=== PATIENT | female | born 1960 | race Caucasian/White ===

== ENCOUNTER 2020-08-14 10:19 | Outpatient (REF) | payer OTHER, SELFPAY ==
--- NOTE | 2020-08-14 10:24 | MM_ITS ---
EXAMINATION: MM SCREENING DIGITAL BREAST TOMOSYNTHESIS, BILATERAL CLINICAL INFORMATION: Screening. Asymptomatic. The lifetime risk of breast cancer based on the Tyrer-Cuzick Model is 9%. COMPARISON: Mammography: 02/23/2019, 01/29/2018, 12/28/2016, 12/10/2015 TECHNIQUE: Digital breast tomosynthesis is performed in both the craniocaudal and mediolateral oblique views along with computer-aided detection (CAD). Synthesized 2D images are generated from the tomosynthesis. FINDINGS: There are scattered areas of fibroglandular density (ACR BI-RADS breast composition Category b). Parenchymal pattern is similar to prior studies. There is no developing density. No interval mass or architectural abnormality or abnormal calcifications. No developing density. The axilla and skin contours are unremarkable. MM/MM tomosynthesis screening BI IMPRESSION: No mammographic evidence of malignancy. ASSESSMENT: BI-RADS 1: Negative RECOMMENDATION: Routine annual mammography screening. This patient's information was entered into a reminder system with a target due date for their next mammogram.
== END 2020-08-14 10:20 | disposition home or self-care (01) ==
LOC: HO.MAMMO 10:19
PROVIDERS: PCP Internal Medicine; Visit Provider Internal Medicine
DX: Z12.31 Encounter for screening mammogram for malignant neoplasm of breast (principal)
CPT/HCPCS: 77063; 77067

== ENCOUNTER 2020-09-14 06:32 | Outpatient (REF) | payer OTHER, SELFPAY | END 2020-09-14 06:33 | disposition home or self-care (01) | LOC: HO.LAB 06:32 | PROVIDERS: Visit Provider Internal Medicine | DX: Z20.828 Contact with and (suspected) exposure to other viral communicable diseases (principal) | CPT/HCPCS: C9803; U0003 ==

== ENCOUNTER 2021-05-20 06:27 | Outpatient (REF) | payer OTHER, SELFPAY ==
[2021-05-20 11:22] LABS: Glucose Urine UA NEG (NEG); Leukocyte Esterase Urine NEG (NEG); Nitrite Urine NEG (NEG); Specific Gravity - Urine <= 1.005 (1.005-1.025); Urine Blood NEG (NEG); Urine Ketones NEG (NEG); Urine Protein NEG (NEG-TRACE)
[2021-05-20 11:24] LABS: Appearance Urine CLEAR; Color Urine YELLOW
[2021-05-20 11:28] LABS: Hematocrit 43.5 % (37-47); Hemoglobin 14.2 g/dl (12.0-16.0); Mean Corpuscular HGB Conc 32.6 g/dl (31.0-35.0); Mean Corpuscular Hemoglobin 31.2 pg (27.0-33.0); Mean Corpuscular Volume 95.6 fL (80-98); Platelet Count 321 X10*3/uL (160-400); Red Blood Count 4.55 X10*6/uL (4.20-5.50); Red Cell Distribution Width 12.7 % (11.0-16.0); White Blood Count 5.1 X10*3/uL (4.8-10.8)
[2021-05-20 11:44] LABS: Alanine Aminotransferase 23 U/L (0-31); Albumin Level 4.7 g/dL (3.5-5.0); Alkaline Phosphatase 80 U/L (39-117); Anion Gap 17 (12-20); Aspartate Amino Transferase 24 U/L (5-31); Bilirubin Total 0.7 mg/dL (0.0-1.0); Blood Urea Nitrogen 10 mg/dL (9-16); Calcium 9.6 mg/dL (8.4-10.2); Carbon Dioxide 25 mmol/L (22-29); Chloride 102 mmol/L (96-108); Cholesterol 195 mg/dL; Estimated Glomerular Filt Rate > 60; Glucose Fasting 111 mg/dL (60-99); HDL Cholesterol 51 mg/dL; LDL Cholesterol Calculated 88 mg/dl; Potassium 4.7 mmol/L (3.3-5.1); Sodium 139 mmol/L (135-145); Total Protein 7.1 g/dL (6.5-8.0); Triglycerides 280 mg/dL
== END 2021-05-20 06:28 | disposition home or self-care (01) ==
LOC: HO.HMGCLDS 06:27
PROVIDERS: PCP Internal Medicine; Visit Provider Internal Medicine
DX: Z00.00 Encounter for general adult medical examination without abnormal findings (principal)
CPT/HCPCS: 36415; 80053; 80061; 81003; 85027

== ENCOUNTER 2021-08-17 07:13 | Outpatient (REF) | payer OTHER, SELFPAY ==
--- NOTE | ~2021-08-17 | MM_ITS ---
EXAMINATION: MM SCREENING DIGITAL BREAST TOMOSYNTHESIS, BILATERAL CLINICAL INFORMATION: Screening. Asymptomatic. The lifetime risk of breast cancer based on the Tyrer-Cuzick Model is 6.3%. COMPARISON: Mammography: August 14, 2020 and studies dating back to August 31, 2012 TECHNIQUE: Digital breast tomosynthesis is performed in both the craniocaudal and mediolateral oblique views along with computer-aided detection (CAD). Synthesized 2D images are generated from the tomosynthesis. FINDINGS: There are scattered areas of fibroglandular density (ACR BI-RADS breast composition Category b). There are no significant masses, abnormal calcifications, or other abnormalities. MM/MM tomosynthesis screening BI IMPRESSION: There are no significant changes from prior study. ASSESSMENT: BI-RADS 1: Negative RECOMMENDATION: Routine annual mammography screening. This patient's information was entered into a reminder system with a target due date for their next mammogram.
== END 2021-08-17 07:14 | disposition home or self-care (01) ==
LOC: HO.MAMMO 07:13
PROVIDERS: Visit Provider Internal Medicine
DX: Z12.31 Encounter for screening mammogram for malignant neoplasm of breast (principal)
CPT/HCPCS: 77063; 77067

== ENCOUNTER 2021-10-15 12:34 | Outpatient (REF) | payer OTHER, SELFPAY ==
[2021-10-15 12:55] LABS: COVID-19 Test Negative (Negative)
== END 2021-10-15 12:35 | disposition home or self-care (01) ==
LOC: HO.LNP 12:34
PROVIDERS: Visit Provider Internal Medicine
DX: R09.89 Other specified symptoms and signs involving the circulatory and respiratory systems (principal); Z20.822 Contact with and (suspected) exposure to COVID-19
CPT/HCPCS: 87635

== ENCOUNTER 2022-04-20 06:04 | Outpatient (REF) | payer OTHER, SELFPAY ==
[2022-04-20 11:30] LABS: MANUAL DIFF FLAG NO
[2022-04-20 11:53] LABS: Basophils Absolute Auto 0.1 X10*3/uL (0.0-0.2); Basophils Percent Auto 1.1 % (0-2); Eosinophils Absolute Auto 0.1 X10*3/uL (0.0-0.4); Hematocrit 41.3 % (37.0-47.0); Hemoglobin 13.4 g/dl (12.0-16.0); Imm Gran Abs Auto 0.01 X10*3/uL (0.00-0.03); Imm Gran Pct Auto 0.2 % (0.0-0.4); Lymphocytes Percent Auto 42.9 % (20-40); Mean Corpuscular HGB Conc 32.4 g/dl (31.0-35.0); Mean Corpuscular Hemoglobin 31.3 pg (27.0-33.0); Mean Corpuscular Volume 96.5 fL (80.0-98.0); Monocytes Absolute Auto 0.5 X10*3/uL (0.1-1.2); Monocytes Percent Auto 11.2 % (2-11); Neutrophils Absolute Auto 1.9 x10*3/uL (2.0-8.3); Neutrophils Percent Auto 41.6 % (45-73); Platelet Count 278 X10*3/uL (160-400); Red Blood Count 4.28 X10*6/uL (4.20-5.50); Red Cell Distribution Width 12.9 % (11.0-16.0); White Blood Count 4.7 X10*3/uL (4.8-10.8)
[2022-04-20 14:38] LABS: Alanine Aminotransferase 23 U/L (0-31); Albumin Level 4.6 g/dL (3.5-5.0); Alkaline Phosphatase 80 U/L (39-117); Anion Gap 15 (12-20); Aspartate Amino Transferase 32 U/L (5-31); Bilirubin Total 0.4 mg/dL (0.0-1.0); Blood Urea Nitrogen 8 mg/dL (9-16); Calcium 8.9 mg/dL (8.4-10.2); Carbon Dioxide 26 mmol/L (22-29); Chloride 104 mmol/L (96-108); Cholesterol 171 mg/dL; Estimated Glomerular Filt Rate > 60; Glucose Fasting 95 mg/dL (60-99); HDL Cholesterol 53 mg/dL; LDL Cholesterol Calculated 81 mg/dl; Potassium 4.3 mmol/L (3.3-5.1); Sodium 141 mmol/L (135-145); Total Protein 7.1 g/dL (6.5-8.0); Triglycerides 186 mg/dL
== END 2022-04-20 06:05 | disposition home or self-care (01) ==
LOC: HO.HMGCLDS 06:04
PROVIDERS: PCP Internal Medicine; Visit Provider Internal Medicine
DX: Z00.00 Encounter for general adult medical examination without abnormal findings (principal); Z13.220 Encounter for screening for lipoid disorders
CPT/HCPCS: 36415; 80053; 80061; 85025

== ENCOUNTER 2022-06-28 17:06 | Outpatient (REF) | payer OTHER, SELFPAY ==
--- NOTE | ~2022-06-28 | XR_ITS ---
EXAMINATION: XR HAND, RIGHT CLINICAL INFORMATION: Pain. COMPARISON: None TECHNIQUE: PA, lateral, and oblique views of the right hand. FINDINGS: There is a soft tissue mass along the dorsal aspect of DIP joint 5th digit. No bony erosive changes, fracture or dislocation seen. Alignment is anatomic. Joint spaces are maintained. No erosions or soft tissue calcifications. XR/XR hand RT min 3V IMPRESSION: Soft tissue mass dorsal to the DIP joint and distal end of mid phalanx 5th digit without underlying bone or joint abnormality. Question synovial cyst, tenosynovitis, or wart.
== END 2022-06-28 17:07 | disposition home or self-care (01) ==
LOC: HO.HOSX 17:06
PROVIDERS: Visit Provider Orthopaedic Surgery
DX: M79.641 Pain in right hand (principal)
CPT/HCPCS: 73130

== ENCOUNTER 2022-07-28 09:36 | Day surgery (SDC) | payer OTHER, SELFPAY ==
--- NOTE | 2022-07-28 09:26 | W.PM.OPN ---
Operative Note Operative Note Date of Service: 07/28/22 Narrative: Operative Note Preop diagnosis: 1. Right small finger mass Postop diagnosis: same Procedure: 1. Right small finger mass excisional biopsy Surgeon: Ludy Graves MD Anesthesia: digital block using 1% lidocaine with epinephrine Findings: Solid, friable soft tissue mass, dark purple in color measuring approximately 1.3 cm in diameter founded here in to the dorsal aspect of the middle phalanx atop the extensor tendon extending ulnarly around the middle phalanx with a small amount just volar to the middle phalanx EBL: Less than 5 mL Tourniquet time: None Specimens: Small finger soft tissue mass for histopathology Complications: None Disposition: Brought to recovery room in stable condition Plan: Follow-up for 10-14 days for wound check and suture removal and to check pathology Indications: The patient is 61 years old, with right small finger mass . The risks and benefits of operative treatment including but not limited to risk of damage to blood vessels, nerves, tendons, infection, persistent pain, persistent symptoms, recurrence or possible need for additional surgery were discussed with the patient and the patient wishes to proceed with surgery. Procedure: Once consent was obtained a digital block was performed in the preop area using a combination of 1% lidocaine with epinephrine. The patient was then brought back to the operating suite and placed on the operative table in supine position. A tourniquet was applied to the proximal aspect of the right upper extremity and the limb was prepped and draped in a standard surgical fashion. Once assured that we had a good block, I made a longitudinally oriented but gently curved incision over the dorsal ulnar aspect of the right middle finger middle phalanx. The incision was made through the skin to the subcutaneous tissues using a 15. Blade. There I encountered a dark purple friable soft tissue mass that measured about 1.3 cm in diameter. It was situated atop the extensor mechanism and dorsal and ulnar to the middle phalanx. It was carefully excised from the subcutaneous tissues using tenotomy and iris scissors. I then used a [place] elevator to elevated off of the bone and the extensor mechanism. It was dissected free and placed on the back table to be sent for histopathology. Once satisfied with right small finger mass excisional biopsy the wound was copiously irrigated with normal saline and hemostasis was obtained with a brief period of local pressure. The skin edges were reapproximated with some 5.0 nylon suture material and a sterile dressing was applied. The patient appears to have tolerated the procedure well and with no complications. All digits were well vascularized at the conclusion of the case.
[2022-07-28 09:56] VITALS: BMI 20.7
[2022-07-28 10:15] VITALS: BP 137/88; PULSE 118; RESP 18; TEMP 36.6; O2SAT 98
--- NOTE | 2022-07-28 10:38 | PC.NURSE ---
dr. chester updated that patient stated that her baseline pulse is 115-120. today is 118. dr. chester educated patient to f/u pcp.
[2022-07-28 11:30] VITALS: BP 145/91; PULSE 116; RESP 18; TEMP 37.7; O2SAT 99
== END 2022-07-28 11:51 | disposition home or self-care (01) ==
PROVIDERS: PCP Internal Medicine; Visit Provider Orthopaedic Surgery
PROC: (CPT 26115; principal; 2022-07-28 10:50)
DX: D48.1 Neoplasm of uncertain behavior of connective and other soft tissue (principal); M79.7 Fibromyalgia; M19.041 Primary osteoarthritis, right hand; E78.00 Pure hypercholesterolemia, unspecified; Z88.1 Allergy status to other antibiotic agents; Z88.8 Allergy status to other drugs, medicaments and biological substances
CPT/HCPCS: 26115; 88304; 88307; J0171

== ENCOUNTER 2022-08-18 07:41 | Outpatient (REF) | payer OTHER, SELFPAY ==
--- NOTE | ~2022-08-18 | MM_ITS ---
EXAMINATION: BONE DENSITOMETRY CLINICAL INDICATION: Menopausal. COMPARISON: Baseline BD dated 12/18/2012. TECHNIQUE: Using a [employer] DXA System (software version: 13.1) manufactured by [employer], dual-energy x-ray absorptiometry was performed of the lumbar spine and left hip. The images are of good technical quality. Summary results are attached. FINDINGS: AP SPINE L1-L4: Current: BMD 1.094 g/cm2, Z-score 1.2, T-score -0.7, normal, 2.1% increase from baseline (<5% change is not significant). Baseline: BMD 1.072 g/cm2. LEFT FEMUR, NECK: Current: BMD 0.789 g/cm2, Z-score -0.1, T-score -1.8, osteopenia. Baseline: BMD 0.871 g/cm2. LEFT FEMUR, TOTAL: Current: BMD 0.854 g/cm2, Z-score 0.2, T-score -1.2, osteopenia, 3.8% decrease from baseline (<5% change is not significant). Baseline: BMD 0.888 g/cm2. IDENTIFIED RISK FACTORS: Menopause, family history (parental hip fracture). HISTORY OF FRACTURE: None listed. MEDICATIONS: Calcium supplements or multivitamin, vitamin D. MM/XR DEXA axial skeleton IMPRESSION: 1. DIAGNOSIS: Osteopenia based on the lowest T-score value of -1.8 in the femoral neck applying World Health Organization criteria. 2. 10-YEAR FRACTURE RISK PREDICTION, FRAX: Major osteoporotic fracture (clinical spine, forearm, hip or shoulder) 16.4%. Hip fracture 1.1%. 3. Treatment Recommendations: NOF guidelines recommend consideration for treatment in postmenopausal women and men age 50 and older presenting with the following: -A hip or vertebral (clinical or morphometric) fracture. -T-score less than or equal to -2.5 at the femoral neck or spine after appropriate evaluation to exclude secondary causes. -Low bone mass at the hip or spine and a 10-year fracture probability by FRAX of greater than or equal to 3% for hip fracture or greater than or equal to 20% for major osteoporotic fracture based on the [place] adapted WHO algorithm. 4. Other Recommendations: All treatment decisions require clinical judgment and consideration of individual patient factors, including patient preferences, comorbidities, previous drug use, risk factors not captured in the FRAX model (e.g. frailty, falls, vitamin D deficiency, increased bone turnover, interval significant decline in bone density) and possible under or overestimation of fracture risk by FRAX. Additional medical evaluation for secondary cause of low bone mineral density may be appropriate. FUTURE SCAN RECOMMENDATION: People with diagnosed cases of osteoporosis or at high risk for fracture should have regular bone mineral density tests. For patients eligible for Medicare, routine testing is allowed once every 2 years. The testing frequency can be increased to one year for patients who have rapidly progressing disease, those who are receiving or discontinuing medical therapy to restore bone mass, or have additional risk factors.
--- NOTE | ~2022-08-18 | MM_ITS ---
EXAMINATION: MM SCREENING DIGITAL BREAST TOMOSYNTHESIS, BILATERAL CLINICAL INFORMATION: Screening. Asymptomatic. The lifetime risk of breast cancer based on the Tyrer-Cuzick Model is 5.3%. COMPARISON: Mammography: August 17, 2021 and studies dating back to August 31, 2012 TECHNIQUE: Digital breast tomosynthesis is performed in both the craniocaudal and mediolateral oblique views along with computer-aided detection (CAD). Synthesized 2D images are generated from the tomosynthesis. FINDINGS: The breasts are heterogeneously dense, which may obscure small masses (ACR BI-RADS breast composition Category c). There are no significant masses, abnormal calcifications, or other abnormalities. MM/MM tomosynthesis screening BI IMPRESSION: No significant changes from prior exam. ASSESSMENT: BI-RADS 1: Negative RECOMMENDATION: Routine annual mammography screening. This patient's information was entered into a reminder system with a target due date for their next mammogram.
== END 2022-08-18 07:42 | disposition home or self-care (01) ==
LOC: HO.MAMMO 07:41
PROVIDERS: PCP Internal Medicine; Visit Provider Internal Medicine
DX: Z12.31 Encounter for screening mammogram for malignant neoplasm of breast (principal); Z13.820 Encounter for screening for osteoporosis; Z78.0 Asymptomatic menopausal state
CPT/HCPCS: 77063; 77067; 77080

== ENCOUNTER 2022-11-18 07:22 | Day surgery (SDC) | payer OTHER, SELFPAY ==
--- NOTE | 2022-11-17 11:01 | HO.ANESPROP2 ---
Documented by User: Jenny Bauer NP 11/17/22 11:01 HPI - Anesthesia Eval Consult details Narrative: 61yo F for Colonoscopy PMFSH Active Problems Active Problems: All Active Problems (Updated 06/29/22 @ 09:06 by Torsten Ramos) Finger mass, right (Acute) Past Medical History Medical History Fibromyalgia High cholesterol Surgical History Surgical History (Updated 11/18/22 @ 07:36 by Jamilah Ansari RN) H/O hand surgery Hx of colonoscopy S/P bilateral foot surgery S/P left knee arthroscopy Social History Social History (Updated 11/18/22 @ 08:03 by Lexii Centeno MD) Patient Tobacco Use Status: Never used Tobacco Use of substances other than those prescribed or required for medical reasons: No Are you DNR?: No Advance Directives: No Advance Directives Information Provided: Yes Recently lost weight without trying: No Nutrition Risks: No Nutritional Risk Current occupational status: employed Current occupation: Customer service Meds Allergies Allergy/AdvReac Type Severity Reaction Status Date / Time Ceftin Allergy Severe Diarrhea Uncoded 11/18/22 07:34 Flexeril Allergy Unknown vaginal Uncoded 08/10/22 09:43 bleeding Home Medications Medication Instructions Recorded Confirmed Last Taken Type acetaminophen 650 mg 650 mg PO Q12H 06/29/22 11/18/22 Unknown History tablet,extended release (Tylenol Arthritis Pain) amitriptyline 10 mg tablet 10 mg PO DAILY 06/29/22 11/18/22 Unknown History fluticasone propionate 50 1 spray intranasal DAILY 06/29/22 11/18/22 Unknown History mcg/actuation nasal spray,suspension (Flonase Allergy Relief) montelukast 10 mg tablet 10 mg PO DAILY 06/29/22 11/18/22 Unknown History (Singulair) simvastatin 20 mg tablet 20 mg PO DAILY 06/29/22 11/18/22 Unknown History Exam Exam Date and Time: November 17, 2022 110 Assessment and Plan Assessment Anesthesia Assessment: Chart Reviewed Documented by User: Lexii Centeno MD 11/18/22 08:07 PMFSH Active Problems Active Problems: All Active Problems (Updated 11/18/22 @ 07:35 by Lexii Centeno MD) Finger mass, right (Acute) Environmental allergies Past Medical History Medical History Fibromyalgia High cholesterol Family History Family history of problems with anesthesia: No Surgical History Surgical History (Updated 11/18/22 @ 07:36 by Jamilah Ansari RN) H/O hand surgery Hx of colonoscopy S/P bilateral foot surgery S/P left knee arthroscopy History of Problems with Anesthesia: Yes (PONV with GA) Social History Social History (Updated 11/18/22 @ 08:03 by Lexii Centeno MD) Patient Tobacco Use Status: Never used Tobacco Use of substances other than those prescribed or required for medical reasons: No Are you DNR?: No Advance Directives: No Advance Directives Information Provided: Yes Recently lost weight without trying: No Nutrition Risks: No Nutritional Risk Current occupational status: employed Current occupation: Customer service Meds Allergies Allergy/AdvReac Type Severity Reaction Status Date / Time Ceftin Allergy Severe Diarrhea Uncoded 11/18/22 07:34 Flexeril Allergy Unknown vaginal Uncoded 08/10/22 09:43 bleeding Home Medications Medication Instructions Recorded Confirmed Last Taken Type acetaminophen 650 mg 650 mg PO Q12H 06/29/22 11/18/22 Unknown History tablet,extended release (Tylenol Arthritis Pain) amitriptyline 10 mg tablet 10 mg PO DAILY 06/29/22 11/18/22 Unknown History fluticasone propionate 50 1 spray intranasal DAILY 06/29/22 11/18/22 Unknown History mcg/actuation nasal spray,suspension (Flonase Allergy Relief) montelukast 10 mg tablet 10 mg PO DAILY 06/29/22 11/18/22 Unknown History (Singulair) simvastatin 20 mg tablet 20 mg PO DAILY 06/29/22 11/18/22 Unknown History Exam Height,Weight and Vital Signs: Height 5 ft 1 in Weight 49.895 kg Vital Signs Temp Pulse Resp BP Pulse Ox O2 Del Method 11/18/22 08:03 103 H 11/18/22 07:49 97.9 F 115 H 16 141/95 H 98 Room Air Airway Mallampati Class: II TM Dist: >3cm Neck ROM: Full (But sees Chiropractor) Loose/Missing/Broken Teeth: No (Denies broken, loose, missing teeth) Heart: RRR Lungs: CTAB Assessment and Plan Assessment Anesthesia Assessment: Anesthesia Plan Discussed Final Anesthetic Review Family History of Problems with Anesthesia: No History of Problems with Anesthesia: Yes (PONV with GA) NPO: Yes ASA Class: II Final Preanesthetic Review: No Changes in Pt Med Stat, Meds/Allgs Chart Reviewed, Consent Obtained/Reviewed and Anes Risks/Benef Reviewed Patient Risk: Low Procedure Risk: Low Assessment/Block/Sedation in SS: Assess/Block/Sedation-SS Anesthetic Plan Anesthetic Plan: MAC: Disposition: Standard PACU
[2022-11-18 07:36] VITALS: BMI 20.7
[2022-11-18 07:49] VITALS: BP 141/95; PULSE 115; RESP 16; TEMP 36.6; O2SAT 98
[2022-11-18] MEDS: Lactated Ringers 1,000 ML 100 ML IVCONT (08:01)
[2022-11-18 08:03] VITALS: PULSE 103
[2022-11-18 09:27] VITALS: BP 122/71; PULSE 90; RESP 16; TEMP 36.3; O2SAT 100
--- NOTE | 2022-11-18 09:30 | PM.OP ---
Brief Operative Note Date of Service: 11/18/22 Pre-op diagnosis: Screening Post-op diagnosis: other (Polyp) Procedure: Colonoscopy to the cecum and TI with bx/removal of polyp Surgeon: Bernardino Traylor Anesthesia: MAC Was an Executive Chef used for this Procedure?: No Estimated blood loss (mL): 2.0 Pathology: other (A. Proximal ascending colon polyp) Condition: stable Disposition: PACU
[2022-11-18 09:42] VITALS: BP 131/86; PULSE 93; RESP 18; TEMP 36.2; O2SAT 99
--- NOTE | 2022-11-18 11:33 | OP_ITS ---
11/18/2022 SURGEON: Bernardino Traylor MD INDICATIONS: The patient presents for evaluation of colorectal cancer screening. Full consent has been obtained from her for this, including risks of bleeding and perforation. PREOPERATIVE DIAGNOSIS: Colorectal cancer screening. POSTOPERATIVE DIAGNOSIS: PROCEDURE PERFORMED: Colonoscopy to the cecum and terminal ileum with biopsy and removal of polyp. ESTIMATED BLOOD LOSS: COMPLICATIONS: ANESTHESIA: Monitored anesthesia care. ASSISTANTS: SPECIMENS: POSTOPERATIVE DIAGNOSES: Colorectal cancer screening, colon polyp, diverticulosis, internal and external hemorrhoids. DESCRIPTION OF PROCEDURE: The patient was placed in the left lateral decubitus position. A digital rectal exam revealed some external hemorrhoids. The Olympus video pediatric colonoscope was entered into the rectum and advanced easily to the cecum. Once in the cecum, I did identify a normal-appearing cecal pouch with appendiceal orifice and a normal-appearing ileocecal valve. The terminal ileum was cannulated and appeared normal. The scope was withdrawn back in the colon. The entire cecum and ileocecal valve appeared normal. The scope was then slowly withdrawn assessing all mucosal surfaces carefully. Preparation was excellent. In the proximal ascending colon was an approximately 4 mm polyp which was biopsied and completely removed with a cold biopsy forceps. I did not visualize any other polyps, colitis, nor angiodysplasia. There was a mild amount of sigmoid diverticulosis. In the rectum, the scope was retroflexed visualizing internal hemorrhoids, but no other pathology. The rectal mucosa appeared normal. The scope was straightened and withdrawn from the patient. She tolerated the procedure well and was returned to the recovery area in stable condition. IMPRESSION: 1. Small colon polyp. 2. Diverticulosis. 3. Internal and external hemorrhoids. PLAN: The results of the pathology will be checked. If the polyp is a tubular adenoma, I would recommend followup colonoscopy in 5 years. She will otherwise see me on a p.r.n. basis. MD ESTIVEN Otero/DEVON / [id number] MTDD
== END 2022-11-18 10:05 | disposition home or self-care (01) ==
PROVIDERS: PCP Internal Medicine; Visit Provider Internal Medicine
PROC: 0DJD8ZZ Inspection of Lower Intestinal Tract, Via Natural or Artificial Opening Endoscopic (ICD-10-PCS; CPT 45378; principal; 2022-11-18 08:30)
DX: Z12.11 Encounter for screening for malignant neoplasm of colon (principal); D12.2 Benign neoplasm of ascending colon; K57.30 Diverticulosis of large intestine without perforation or abscess without bleeding; K64.8 Other hemorrhoids; K64.4 Residual hemorrhoidal skin tags; E78.5 Hyperlipidemia, unspecified; M79.7 Fibromyalgia; J30.2 Other seasonal allergic rhinitis; Z79.51 Long term (current) use of inhaled steroids; Z79.899 Other long term (current) drug therapy; Z88.1 Allergy status to other antibiotic agents; Z88.8 Allergy status to other drugs, medicaments and biological substances
CPT/HCPCS: 45380; 88305; J2405

== ENCOUNTER 2023-04-26 06:08 | Outpatient (REF) | payer OTHER, SELFPAY ==
[2023-04-26 11:36] LABS: MANUAL DIFF FLAG NO
[2023-04-26 11:49] LABS: Basophils Percent Auto 0.8 % (0-2); Eosinophils Absolute Auto 0.1 X10*3/uL (0.0-0.4); Eosinophils Percent Auto 2.8 % (0-4); Hematocrit 43.4 % (37.0-47.0); Hemoglobin 13.9 g/dl (12.0-16.0); Imm Gran Abs Auto 0.01 X10*3/uL (0.00-0.03); Imm Gran Pct Auto 0.3 % (0.0-0.4); Lymphocytes Absolute Auto 1.3 X10*3/uL (1.2-4.9); Lymphocytes Percent Auto 36.4 % (20-40); Mean Corpuscular Volume 96.7 fL (80.0-98.0); Mean Platelet Volume 9.9 fL (9.4-12.3); Monocytes Absolute Auto 0.4 X10*3/uL (0.1-1.2); Monocytes Percent Auto 11.5 % (2-11); Neutrophils Absolute Auto 1.7 x10*3/uL (2.0-8.3); Neutrophils Percent Auto 48.2 % (45-73); Platelet Count 274 X10*3/uL (160-400); Red Blood Count 4.49 X10*6/uL (4.20-5.50); Red Cell Distribution Width 12.8 % (11.0-16.0); White Blood Count 3.6 X10*3/uL (4.8-10.8)
[2023-04-26 12:05] LABS: Alanine Aminotransferase 31 U/L (0-31); Albumin Level 4.4 g/dL (3.5-5.0); Alkaline Phosphatase 85 U/L (39-117); Anion Gap 15 (12-20); Aspartate Amino Transferase 33 U/L (5-31); Bilirubin Total 0.5 mg/dL (0.0-1.0); Blood Urea Nitrogen 8 mg/dL (9-16); Calcium 9.3 mg/dL (8.4-10.2); Carbon Dioxide 26 mmol/L (22-29); Chloride 104 mmol/L (96-108); Cholesterol 166 mg/dL; Estimated Glomerular Filt Rate > 60; Glucose Fasting 95 mg/dL (60-99); HDL Cholesterol 53 mg/dL; LDL Cholesterol Calculated 74 mg/dl; Potassium 4.2 mmol/L (3.3-5.1); Sodium 141 mmol/L (135-145); Total Protein 7.1 g/dL (6.5-8.0); Triglycerides 197 mg/dL
== END 2023-04-26 06:09 | disposition home or self-care (01) ==
LOC: HO.HMGCLDS 06:08
PROVIDERS: PCP Internal Medicine; Visit Provider Internal Medicine
DX: I10 Essential (primary) hypertension (principal); E78.00 Pure hypercholesterolemia, unspecified
CPT/HCPCS: 36415; 80053; 80061; 85025

== ENCOUNTER 2023-08-22 07:22 | Outpatient (REF) | payer OTHER, SELFPAY | END 2023-08-22 07:23 | disposition home or self-care (01) | LOC: HO.MAMMO 07:22 | PROVIDERS: PCP Internal Medicine; Visit Provider Internal Medicine | DX: Z12.31 Encounter for screening mammogram for malignant neoplasm of breast (principal) | CPT/HCPCS: 77063; 77067 ==

== ENCOUNTER → 2023-08-22 07:45 | Outpatient (BNV) | payer OTHER, SELFPAY | PROVIDERS: PCP Internal Medicine; Visit Provider Radiology Diagnostic Radiology | DX: Z12.31 Encounter for screening mammogram for malignant neoplasm of breast (principal) | CPT/HCPCS: 77063; 77067 ==

== ENCOUNTER 2024-04-10 06:02 | Outpatient (REF) | payer OTHER, SELFPAY ==
[2024-04-10 10:16] LABS: MANUAL DIFF FLAG NO
[2024-04-10 10:18] LABS: Basophils Absolute Auto 0.1 X10*3/uL (0.0-0.2); Basophils Percent Auto 1.1 % (0-2); Eosinophils Absolute Auto 0.1 X10*3/uL (0.0-0.4); Eosinophils Percent Auto 2.4 % (0-4); Hematocrit 41.5 % (37.0-47.0); Hemoglobin 13.7 g/dl (12.0-16.0); Imm Gran Abs Auto 0.01 X10*3/uL (0.00-0.03); Imm Gran Pct Auto 0.2 % (0.0-0.4); Lymphocytes Absolute Auto 1.6 X10*3/uL (1.2-4.9); Lymphocytes Percent Auto 34.9 % (20-40); Mean Corpuscular Hemoglobin 31.6 pg (27.0-33.0); Mean Corpuscular Volume 95.8 fL (80.0-98.0); Mean Platelet Volume 9.6 fL (9.4-12.3); Monocytes Absolute Auto 0.4 X10*3/uL (0.1-1.2); Monocytes Percent Auto 8.2 % (2-11); Neutrophils Absolute Auto 2.5 x10*3/uL (2.0-8.3); Neutrophils Percent Auto 53.2 % (45-73); Platelet Count 287 X10*3/uL (160-400); Red Blood Count 4.33 X10*6/uL (4.20-5.50); Red Cell Distribution Width 12.9 % (11.0-16.0); White Blood Count 4.6 X10*3/uL (4.8-10.8)
[2024-04-10 11:12] LABS: Alanine Aminotransferase 25 U/L (0-31); Albumin Level 4.5 g/dL (3.5-5.0); Alkaline Phosphatase 85 U/L (39-117); Anion Gap 15 (12-20); Aspartate Amino Transferase 26 U/L (5-31); Bilirubin Total 0.6 mg/dL (0.0-1.0); Blood Urea Nitrogen 10 mg/dL (9-16); Calcium 9.6 mg/dL (8.4-10.2); Carbon Dioxide 25 mmol/L (22-29); Chloride 103 mmol/L (96-108); Cholesterol 175 mg/dL (<200); Estimated Glomerular Filt Rate > 60; Glucose Fasting 97 mg/dL (60-99); HDL Cholesterol 55 mg/dL (>40); LDL Cholesterol Calculated 83 mg/dL (<100); Potassium 4.2 mmol/L (3.3-5.1); Sodium 139 mmol/L (135-145); Total Protein 7.1 g/dL (6.5-8.0); Triglycerides 187 mg/dL (<150)
== END 2024-04-10 06:03 | disposition home or self-care (01) ==
LOC: HO.HMGCLDS 06:02
PROVIDERS: PCP Internal Medicine; Visit Provider Internal Medicine
DX: Z00.00 Encounter for general adult medical examination without abnormal findings (principal); I10 Essential (primary) hypertension; E78.00 Pure hypercholesterolemia, unspecified
CPT/HCPCS: 36415; 80053; 80061; 85025

== ENCOUNTER 2024-08-26 07:50 | Outpatient (REF) | payer OTHER, SELFPAY ==
--- NOTE | ~2024-08-26 | MM_ITS ---
EXAMINATION: MM SCREENING DIGITAL BREAST TOMOSYNTHESIS, BILATERAL CLINICAL INFORMATION: Screening. Asymptomatic. COMPARISON: Mammography: Comparison is made with available priors TECHNIQUE: Digital breast mammography with tomosynthesis is performed in both the craniocaudal and mediolateral oblique views along with computer-aided detection (CAD). FINDINGS: The breasts are heterogeneously dense, which may obscure small masses (ACR BI-RADS breast composition Category c). There are no significant masses, abnormal calcifications, or other abnormalities. MM/MM tomosynthesis screening BI IMPRESSION: No mammographic evidence of malignancy. ASSESSMENT: BI-RADS BI-RADS 1 - Negative RECOMMENDATION: Routine annual mammography screening. 1 year F/U This examination should not preclude the clinical evaluation of a suspicious palpable abnormality. This patient's information was entered into a reminder system with a target due date for their next mammogram. Electronically signed by: Milena Demarco DO 08/30/2024 01:19 PM PIPER
--- OUTSIDE RECORDS SUMMARY | 2024-08-28 12:42 | XMS_ITS | Patient Health Record ---
Author Organization [facility] Address [address] [place] [address] Care Team Providers Care Chemistry Tutor Name Role Phone Ricardo Chang MD Primary Care Provider Bernardino Savage Unavailable [phone] ALLERGIES Allergen (clinical drug ingredient) Drug/Non Drug Allergy documented on EMR Reaction Allergy Type Onset Date Status duloxetine Cymbalta Unknown Drug Allergy Active Flexeril (uncoded) Unknown Allergy A ctive Ceftin (uncoded) Unknown Allergy Act jazmin REASON FOR REFERRAL No Information MEDICATIONS Medication SIG (Take, Route, Frequency, Duration) Notes Start Date End Date Status [place] Fiber Good 2 GM as directed Orally Active Flonase 50 MCG/DOSE 1 spray in each nost ril Nasally Once a day for 30 day(s) Active Calcium 500 MG 1 tablet with food O rally Once a day Active Claritin 10 MG 1 tablet Orally Once a day for 30 day(s) Active Simvastatin 20 MG 1 tablet in the even ing Orally Once a day for 30 day(s) Active Montelukast Sodium 10 MG 1 tablet Orally Once a day for 30 day(s) Active Multivitamins - 1 tablet Orally Once a day Active Amitriptyline HCl 25 MG as directed Oral ly Once a day Active Tylenol 8 Hour 650 MG 2 tablets as neede d Orally every 8 hrs Active IMMUNIZATIONS Vaccine Route Administration Date Status Comme nts Influenza Unknown 07/06/2022 Administered SOCIAL HISTORY Sex Assigned At : Social History Observation Description Sex Assigned At Unknown Alcohol Screen Question Answer Notes Did you have a drink containing alcohol in the p ast year? No Points 0 Interpretation Negative PROBLEMS Problem Type ICD Code Onset Dates Problem Status W/U Status Risk SNOMED Code Notes Problem Special screening for malignant neoplasms, colon (V76.51) Active confirmed Screening for malignant neoplasm of colon (982196713) Problem Colon cancer screening (Z12.11) Active confirmed 535270092 Problem Preprocedural examination (Z01.818) Active confirmed [id number] Problem Diverticulosis of large intestine without perforation or abscess without bleeding (K57.30) Active confirmed Diverticul ar disease of colon (411707744) PLAN OF TREATMENT Pending Test Test Name Order Date Pathology 11/18/2022 Future Test Test Name Order Date COLONOSCOPY 01/18/2012 COLONOSCOPY 09/28/2022 Next Appt Details Provider Name:Bernardino Traylor , 11/01/2024 01:20:00 PM, [address], [address], [place], [address], Insurance Providers Payer Name Payer Address Payer Phone Subscriber Number Group Number Insured Name Patient Relationship to Insured Coverage Start Date Coverage End Date [facility] [address] [place] [phone] [id number] [id number] MCDERMOTT Self - patient is the insured MEDICAL (GENERAL) HISTORY Medical History History ICD Code Fibromyalgia Arthritis Denies [place],DM,CVA,Lung disease,renal dise ase Seasonal allergies Hyperlipidemia Negative screening colonosco py in 02/2012 except for some minimal diverticulosis, and small internal and external hemorrhoids Surgical History Surgery Date(Month/Year) Benign breast biopsy Orthopedic surgery for wrist, knee, toe 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 Graves. There was no malignancy Bone spur removed
== END 2024-08-26 07:51 | disposition home or self-care (01) ==
LOC: HO.MAMMO 07:50
PROVIDERS: PCP Internal Medicine; Visit Provider Internal Medicine
DX: Z12.31 Encounter for screening mammogram for malignant neoplasm of breast (principal)
CPT/HCPCS: 77063; 77067

== ENCOUNTER → 2024-08-26 08:15 | Outpatient (BNV) | payer OTHER, SELFPAY | PROVIDERS: PCP Internal Medicine; Visit Provider Internal Medicine | DX: Z12.31 Encounter for screening mammogram for malignant neoplasm of breast (principal) | CPT/HCPCS: 77063; 77067 ==

== ENCOUNTER 2025-02-28 07:43 | Outpatient (REF) | payer MEDICARE, SELFPAY ==
[2025-02-28 10:05] LABS: MANUAL DIFF FLAG NO
[2025-02-28 10:11] LABS: Basophils Percent Auto 0.1 % (0-2); Eosinophils Percent Auto 0.5 % (0-4); Hematocrit 42.4 % (37.0-47.0); Hemoglobin 14.1 g/dl (12.0-16.0); Imm Gran Abs Auto 0.14 X10*3/uL (0.00-0.03); Imm Gran Pct Auto 1.7 % (0.0-0.4); Lymphocytes Percent Auto 24.8 % (20-40); Mean Corpuscular HGB Conc 33.3 g/dl (31.0-35.0); Mean Corpuscular Hemoglobin 31.7 pg (27.0-33.0); Mean Corpuscular Volume 95.3 fL (80.0-98.0); Mean Platelet Volume 9.6 fL (9.4-12.3); Monocytes Absolute Auto 0.6 X10*3/uL (0.1-1.2); Neutrophils Absolute Auto 5.3 x10*3/uL (2.0-8.3); Neutrophils Percent Auto 65.9 % (45-73); Platelet Count 326 X10*3/uL (160-400); Red Blood Count 4.45 X10*6/uL (4.20-5.50); Red Cell Distribution Width 13.2 % (11.0-16.0); White Blood Count 8.1 X10*3/uL (4.8-10.8)
[2025-02-28 11:05] LABS: Alanine Aminotransferase 30 U/L (0-31); Albumin Level 4.8 g/dL (3.5-5.0); Alkaline Phosphatase 70 U/L (39-117); Anion Gap 12 (12-20); Aspartate Amino Transferase 27 U/L (5-31); Bilirubin Total 0.6 mg/dL (0.0-1.0); Blood Urea Nitrogen 12 mg/dL (9-16); Calcium 9.3 mg/dL (8.4-10.2); Carbon Dioxide 27 mmol/L (22-29); Chloride 103 mmol/L (96-108); Cholesterol 193 mg/dL (<200); Estimated Glomerular Filt Rate > 60; Glucose Random 96 mg/dL (60-115); HDL Cholesterol 58 mg/dL (>40); LDL Cholesterol Calculated 89 mg/dL (<100); Potassium 3.8 mmol/L (3.3-5.1); Sodium 138 mmol/L (135-145); TSH reflex Free T4 1.45 uIU/mL (0.32-4.0); Total Protein 6.9 g/dL (6.5-8.0); Triglycerides 233 mg/dL (<150)
[2025-03-04 16:18] LABS: Vitamin D 25-OH, D2 <4 ng/mL; Vitamin D 25-OH, D3 45 ng/mL; Vitamin D 25-OH, Total 45 ng/mL (30-100)
== END 2025-02-28 07:44 | disposition home or self-care (01) ==
LOC: HO.HMGCLDS 07:43
PROVIDERS: PCP Internal Medicine; Visit Provider Internal Medicine
DX: Z13.0 Encounter for screening for diseases of the blood and blood-forming organs and certain disorders involving the immune mechanism (principal); Z13.228 Encounter for screening for other metabolic disorders; E78.00 Pure hypercholesterolemia, unspecified
CPT/HCPCS: 36415; 80053; 80061; 82306; 84443; 85025

== ENCOUNTER 2025-04-02 10:13 | Outpatient (AMB) | payer MEDICARE, SELFPAY ==
--- NOTE | 2025-04-02 10:17 | A.OFFPC_ITS ---
Vital Signs 04/02/25 10:27 Height 5 ft 1.25 in Weight 50.349 kg BMI 20.8 BP 132/92 H Blood Pressure Location Lt brachial Position Sitting Pulse 93 Pulse Source Pulse Oximeter Temp 97 F Temp Source Temporal Artery Scan Pulse Oximetry (%) 99 Oxygen Delivery Method Room Air Intake Visit Reasons: Annual - Dr. Chang pt. - see comments Estate Tax Examiner Required: No Accompanied by: Self / Same As Patient Allergies duloxetine (From Cymbalta) Adverse Reaction (Mild, Verified 04/02/25 10:22) Headache Ceftin Allergy (Severe, Uncoded 11/18/22 07:34) Diarrhea Flexeril Allergy (Unknown, Uncoded 08/10/22 09:43) vaginal bleeding Medication List - Last Reconciled 04/02/25 by WADE Crouch acetaminophen ER (Tylenol Arthritis Pain) 650 mg PO Q12H amitriptyline 25 mg PO BEDTIME calcium carbonate 500 mg PO DAILY fluticasone propionate 50 mcg/actuation (Flonase Allergy Relief) 1 spray intranasal DAILY inulin ([place]' Fiber Good) grams PO montelukast (Singulair) 10 mg PO DAILY multivitamin 1 tab PO DAILY nystatin-triamcinolone 100,000-0.1 unit/g-% appl topical simvastatin 20 mg PO DAILY Tobacco use date assessed: 04/02/25 HPI HPI Comments History of Present Illness Details 64 year old female with history of fibro myalgia, chronic low back pain related t o lumbar stenosis, Mild intermittent asthma, allergic rhinitis, osteopnenia, and HLD presents to the office for management of chronic conditions, to establish care, and for annual physical exam. She lives at home with her sister and feels safe there. No alcohol, cigarettes, or drugs including MJ. She exercises with walking and follows a healthy diet. Hyperlipidemia-on simvastatin, last LDL 89 Osteopenia-last FRAX score 16.4%. Due for repeat. Taking vitamin-D but no real weight-bearing exercise Mild intermittent asthma-uses Singulair as needed during allergy season. Rare use of albuterol, typically when she is sick Fibromyalgia-managed with amitriptyline Lumbar [id number]. Following Dr. Huang of 4 injections White coat hypertension-blood pressures have been controlled at home as well in the office. However, at dental visits, blood pressures have been high. She is requesting a note for the dentist Concerns: None Health maintenance: PCV 20 Last screening mammogram 08/2024 negative for malignancy, 1 year follow-up advised Last DEXA scan 08/2022 showing osteopenia, overdue Last screening colonoscopy 11/2022 with 5 year follow-up advised due to tubular adenoma. Dr. Traylor Last Pap smear 05/2019, overdue. Has not followed with qual research manager ROS: General: No fevers, malaise, unintentional weight loss HEENT: No blurred vision, diplopia. No sore throat, nasal congestion, rhinorrhea, sinus pain, ear pain. No hearing loss Neck - no adenopathy Cardiovascular: No chest pain, palpitations, or leg edema Respiratory: No shortness of breath, wheezing, cough Breast: No pain, palpable lumps, nipple inversion GI: No dysphagia, odynophagia, globus sensation. No abdominal pain, nausea, vomiting, diarrhea, constipation, melena, hematochezia : No dysuria, hematuria, increased urinary frequency, decreased urinary output. PAPER ROLL MACHINE OPERATOR: No abn vaginal bleeding or discharge MSK: No myalgia, back pain, arthralgias Neuro: No headaches, weakness, paresthesias Psych: no depression/anxiery. No AH/VH. No SI/HI Skin: No rashes or lesions EXAM: Constitutional - Awake and Alert, No apparent distress Eyes - PERRLA, EOMI. Anicteric Ears - external ears normal, canals clear, TMs intact and pearly fields with good cone of light Nose- septum midline, nares clear, no sinus tenderness Mouth/throat- mucosa moist, tongue and uvula midline, no erythema/edema or tonsillar adenopathy. Neck-trachea midline, thyroid symmetric without palpable nodules, no adenopathy Cardiovascular - S1S2, RRR, No edema Respiratory - Normal lung expansion, Normal respiratory effort, No respiratory distress, CTA bilaterally Gastrointestinal - NT / ND; +BS; No rebound or guarding - No CVA tenderness Extremities - no calf tenderness bilaterally, no swelling Musculoskeletal - Normal inspection, normal ROM Skin - Warm/Dry, no concerning lesions Neurological - Alert & oriented x3, CN II-XII in tact, 5/5 strength BUE and BLE, 2+ patellar reflexes, sensation intact Psychological - Appropriate affect [facility] Medical History (Updated 04/02/25 @ 10:50 by WADE Crouch) Osteopenia Insomnia Lumbar stenosis High cholesterol Fibromyalgia Surgical History (Updated 04/01/25 @ 15:27 by Antoinette Klein) S/P bilateral foot surgery H/O hand surgery S/P left knee arthroscopy Hx of colonoscopy (~11/18/22) Social History (Updated 11/18/22 @ 08:03 by Lexii Centeno MD) Patient Tobacco Use Status: Never used Tobacco e-Cigarette/Vaping Use: Never Used Current occupational status: employed Current occupation: Customer service Questionnaire PHQ-9 Over the last 2 weeks, how often have you been bothered by any of the following problems? 1. Little interest or pleasure in doing things: several days 2. Feeling down, depressed, or hopeless: not at all 3. Trouble falling or staying asleep, or sleeping too much: several days 4. Feeling tired or having little energy: several days 5. Poor appetite or overeating: several days 6. Feeling bad about yourself - or that you are a failure or have let yourself or your family down: not at all 7. Trouble concentrating on things, such as reading the newspaper or watching television: not at all 8. Moving or speaking so slowly that other people could have noticed. Or the opposite - being so fidgety or restless that you have been moving around a lot more than usual: not at all 9. Thoughts that you would be better off or of hurting yourself in some way: not at all Total score: 4 Source: Developed by Drs. Bernardino Taveras, Kortney Kee, Robby Antonio and colleagues, with an educational clarke from [employer]. Thrive Questionnaire Date Thrive assessed: 04/02/25 I am a: Patient What is your living situation today?: I have a steady place to live Within the past 12 months, did the food you bought not last and you didn't have the money to get more?: Never true Within the past 12 months, did you worry whether your food would run out before you got money to buy more?: Never true Do you have trouble paying for medicines?: No Do you have trouble getting transportation to medical appointments?: No Do you have trouble paying your heating and electricity bill?: No Do you have trouble taking care of your child, family member or friend?: No Do you have trouble with day-to-day activities such as bathing, preparing meals, shopping, managing finances, etc.?: No Are you currently unemployed and looking for a job?: No Are you interested in more education?: No THRIVE Score: 0 JORDAN-7 AMB Questionnaire JORDAN-7 Date JORDAN - 7 assessed: 04/02/25 Feeling nervous, anxious, or on edge: 0 = Not at all Not being able to stop or control worryin = Several days Worrying too much about different things: 1 = Several days Trouble relaxin = Not at all Being so restless that it is hard to sit still: 0 = Not at all Becoming easily annoyed or irritable: 1 = Several days Feeling afraid as if something awful might happen: 0 = Not at all Total JORDAN-7 score (0-4 normal; 5-9 mild; 10-14 moderate; 15-21 severe): 3 Source: Developed by Drs. Bernardino Taveras, Kortney Kee, Robby Antonio and colleagues, with an educational clarke from [employer]. Physical exam (Primary Care) Vital Signs: Last Vital Signs Temp 97 F 04/02/25 10:27 Pulse 93 04/02/25 10:27 BP 132/92 H 04/02/25 10:27 Pulse Ox 99 04/02/25 10:27 Oxygen Delivery Method Room Air 04/02/25 10:27 BMI result Body Mass Index 20.8 Tobacco/Smoking Status: Tobacco use Status Tobacco use date assessed 04/02/25 04/02/25 10:20 Patient Tobacco Use Status Never used Tobacco 04/02/25 10:20 e-Cigarette/Vaping Use Never Used 04/02/25 10:20 PHQ-9: PHQ-9 Score PHQ-9: Total score 4 04/02/25 12:00 Thrive Assessment: Date of Thrive Assessment Date Thrive assessed 04/02/25 04/02/25 10:34 Immunizations pneumoc 20-monserrat conj-dip cr(PF) 0.5 mL IM syringe Performing Provider: WADE Crouch Performing Location: [facility]-10 HD Administered by: COLLIN Garrison on 04/02/25 13:13 Dose Route Admin Location Dispensed Lot Number Expiration Date [facility] Pocket Stitcher 0.5 mL IM Left Deltoid 0.5 mL [id number] 03/17/26 [employer] /[employer] Now Total Dispensed Waste 0.5 mL 0 % VIS Given Date VIS Provided VIS Publication Date 04/02/25 Single Vaccine 25 Eligibility Eligibility Date Funding Source Not [facility] Eligible 04/02/25 Private Coding Level of Care Code Est Pt Level 4 (94579) New Pt Prev Care >65yr (20312) Diagnoses Routine medical exam Z00.00 Lumbar stenosis M48.061 Insomnia G47.00 Fibromyalgia M79.7 High cholesterol E78.00 Osteopenia M85.80 Assessment & Plan Assessment & Plan (1) Routine medical exam: Code(s): Z00.00 - Encounter for general adult medical examination without abnormal findings Plan: 64 year old female presenting for annual physical exam. Plan as below (2) Lumbar stenosis: Comment: L4-L5 Code(s): M48.061 - Spinal stenosis, lumbar region without neurogenic claudication Category: Medical Plan: Stable. Continue following with Dr. Huang amitriptyline (3) Insomnia: Code(s): G47.00 - Insomnia, unspecified Category: Medical Plan: Continue with amitriptyline. Keep sleep-wake cycle (4) Fibromyalgia: Code(s): M79.7 - Fibromyalgia Category: Medical Plan: Stable. Continue amitriptyline (5) High cholesterol: Code(s): E78.00 - Pure hypercholesterolemia, unspecified Category: Medical Plan: Controlled. Continue simvastatin. Diet low in saturated fats and highly processed foods. (6) Osteopenia: Code(s): M85.80 - Other specified disorders of bone density and structure, unspecified site Category: Medical Plan: Vitamin-D levels within normal limits. Continue calcium and vitamin-D supplementation. Recommend increased weight-bearing exercise. Due for DEXA scan which is ordered Plan Routine screening labs as ordered below Continue with screening mammograms, Pap smears, colonoscopies. Referred for DEXA and PAPER ROLL MACHINE OPERATOR Continue following for annual skin exams and use sun protection Annual eye exams Wear seat belt in car Recommend regular exercise and healthy diet Follow up in 1 year for annual exam Orders: Orders XR DEXA axial skeleton Today M85.80 - Other specified disorders of bone density and structure, unspecified site Pneumococcal 20 Immunization Today Z23 - Encounter for immunization Referrals WIRE DRAWING MACHINE OPERATOR Referral Z12.4 - Encounter for screening for malignant neoplasm of cervix Medications: New amitriptyline 25 mg PO BEDTIME 90 tabs 3RF montelukast (Singulair) 10 mg PO DAILY 90 tabs 1RF simvastatin 20 mg PO DAILY 90 tabs 1RF Refilled simvastatin 20 mg PO DAILY 90 tabs 3RF montelukast (Singulair) 10 mg PO DAILY 90 tabs 3RF
[2025-04-02 10:27] VITALS: BP 132/92; PULSE 93; TEMP 36.1; O2SAT 99; BMI 20.8
--- OUTSIDE RECORDS SUMMARY | 2025-04-02 10:45 | XMS_ITS | Patient Health Record ---
Author Organization [facility] Address [address] [place] [address] Care Team Providers Care Creative Project Manager Name Role Phone Ricardo Chang MD Primary Care Provider Italo Edwards Unavailable [phone] Allergies Allergen (clinical drug ingredient) Drug/Non Drug Allergy documented on EMR Reaction Allergy Type Onset Date Status aspirin Aspirin ears ring Drug Allergy Active Ceftin diarrhea Drug Allergy Active Flexeril post menopausal bleeding Drug Allergy Active Reason For Referral No Information Medications Medication SIG (Take, Route, Frequency, Duration) Notes Start Date End Date Status Work Note . .patient was seen to day for planned right foot surgery on 02/05/15 and planned disability from work for 5 weeks following . .; Duration: . 01/19/2015 Not-Taking Work Note . . .Pt. has painful f oot condition and must wear athletic shoes to work .; Duration: . Not-Taking Tylenol Arthritis Pain Active Glucosamine Sulfate Not-Taking Calcium Active Vitamin C Not-Taking Claritin Active Sertraline HCl Not-T aking Flonase Active Amitriptyline HCl Ac tive Fiber Adult Gummies 2 GM as directed Orally Active Simvastatin Active Montelukast Sodium 5 MG as directed Orally Active Multivitamins Active Ibuprofen 600 MG 1 tablet Orally Thre e times a day; Duration: 30 day(s) 01/19/2015 Active Work Note . .this patient may return to work on 03/02/15 and must continue with rest and elevation and surgical shoe; she will need a services delivery driver . 02/23/2015 Not-Taking Social History Tobacco Use: Social History Observation Description Date Details (start date - stop date) Never Smoker NA - NA Tobacco Use/Smoking Question Answer Notes Are you a: nonsmoker Alcohol Screen Question Answer Notes Did you have a drink containing alcohol in the p ast year? No Points 0 Interpretation Negative Problems Problem Type SNOMED Code ICD Code Onset Dates Problem Status W/U Status Risk Notes Problem Pain in right foot (602637128289 107) Pain in right foot (M79.671) Active confirmed Plan Of Treatment Pending Test Test Name Order Date X ray : Foot, right 2V 02/11/2015 X ray : Foot, right 2V 03/16/2015 X ray : Foot, right 2V 04/09/2015 X ray : Foot, right 3V 05/28/2015 X ray : Foot, right 3V 08/26/2015 X ray : Foot, right 3V 01/19/2015 X ray : Foot, right 3V 02/23/2015 X ray : Foot, right 3V 02/03/2014 10336-Igpj Destruction, -14 08/07/2013 39101-Knkc Destruction, -14 11/18/2013 90228-Zwub Destruction, -14 02/03/2014 17624-Vsvx Destruction, -14 05/24/2012 39318-Nzoj Destruction, -14 06/11/2012 16375-Qrlo Destruction, -14 06/21/2012 56201-Lhll Destruction, -14 07/04/2012 06436-Uuuu Destruction, -14 10/22/2012 53400-Foyp Destruction, -14 02/20/2013 91788-Jfhz Destruction, -14 03/07/2012 91354-Hrjk Destruction, -14 06/24/2013 82421- Debride <25 sq cm 03/16/2015 17783- Debride <25 sq cm 04/09/2015- Ganglion Cyst Injection/Aspiratio n 03/07/2012- Ganglion Cyst Injection/Aspiratio n 02/20/2013- Ganglion Cyst Injection/Aspiratio n 11/18/2013 47980, J0702- Neuroma/Injection 06/18/20 14 09511, J0702- Neuroma/Injection 10/20/19 15 61408, J0702- Neuroma/Injection 06/24/20 13 25921-Tbqznucpx, Toes 06/18/2014 Insurance Providers Payer Name Payer Address Payer Phone Subscriber Number Group Number Insured Name Patient Relationship to Insured Coverage Start Date Coverage End Date [facility] [address] [facility] [place], [place] [address] [phone] [id number] Kassandra Saldana Self - patient is the insured Medical (General) History Medical History History ICD Code Arthritis back, hip, knee pain fibromyalgia hepatitis chicken pox measles mumps hyperlipidemia Broken bones Cholesterol Headaches/Migraines Surgical History Surgery Date(Month/Year) ganglion cyst- left wrist 12/1981 arthroscopic left knee surgery 12/1982 foot surgery- spur removed- left big toe 10/1983 fibroidadenoma removal- left breast 02/05 04 colonoscopy 03/09/12 Excision of a cyst right hallux 2 HT/condyle/gang cyst right big toe remov ed 02/05/2015 exploratory- left wrist 05/23/1984 arthroscopy- left knee 02/06/1989 Hospitalization History Reason Date(Month/Year) [facility], Tore ligament in l eft knee 10/12/2013
--- OUTSIDE RECORDS SUMMARY | 2025-04-02 10:45 | XMS_ITS | Patient Health Record ---
Author Organization [facility] Address [address] [place] [address] Care Team Providers Care Community Health Agent Name Role Phone Bernardo (RETIRED) Ricardo WESLEY Primary Care Provide r Bernardino Lofton Unavailable [phone] Allergies Allergen (clinical drug ingredient) Drug/Non Drug Allergy documented on EMR Reaction Allergy Type Onset Date Status duloxetine Cymbalta Unknown Drug Allergy Active Flexeril (uncoded) Unknown Allergy A ctive Ceftin (uncoded) Unknown Allergy Act jazmin Reason For Referral No Information Medications Medication [...] neede d Orally every 8 hrs Active Immunizations Vaccine Route Administration Date Status Comme nts Influenza Unknown 07/06/2022 Administered Social History Alcohol Screen Question Answer Notes Did you have a drink containing alcohol in the p ast year? No Points 0 Interpretation Negative Section Notes: Nonsmoker; no significant al cohol use Nonsmoker; no significant al cohol use Problems Problem Type SNOMED Code ICD Code Onset Dates Problem Status W/U Status Risk Notes Problem Screening for malignant neoplasm of colon (926419929) Special screening for malignant neoplasms, colon (V76.51) Active confirmed Problem 308639484 Colon cancer screening (Z12.11) Active confirmed Problem Diverticulosis o f large intestine without perforation or abscess without bleeding (K57.30) Active confirmed Problem 082356099341511 Preprocedural examination (Z01.818) Active confirmed Plan Of Treatment Pending Test Test Name Order Date Pathology 11/18/2022 Future Test Test Name Order Date COLONOSCOPY 01/18/2012 COLONOSCOPY 09/28/2022 Medical (General) History Medical History History ICD Code Fibromyalgia Arthritis Denies [place],DM,CVA,Lung disease,renal dise ase Seasonal allergies Hyperlipidemia Negative [...]
== END 2025-04-02 11:14 | disposition home or self-care (01) ==
LOC: HO.HMCHD 10:14
PROVIDERS: PCP Internal Medicine; Visit Provider Physician Assistant
DX: Z00.00 Encounter for general adult medical examination without abnormal findings (principal); M48.061 Spinal stenosis, lumbar region without neurogenic claudication; G47.00 Insomnia, unspecified; M79.7 Fibromyalgia; E78.00 Pure hypercholesterolemia, unspecified; M85.80 Other specified disorders of bone density and structure, unspecified site; Z23 Encounter for immunization

== ENCOUNTER → 2025-04-02 10:13 | Outpatient (BNVA) | payer MEDICARE, SELFPAY | PROVIDERS: PCP Internal Medicine; Visit Provider Physician Assistant | DX: Z00.00 Encounter for general adult medical examination without abnormal findings (principal); Z23 Encounter for immunization; M48.061 Spinal stenosis, lumbar region without neurogenic claudication; G47.00 Insomnia, unspecified; M79.7 Fibromyalgia; E78.00 Pure hypercholesterolemia, unspecified; M85.80 Other specified disorders of bone density and structure, unspecified site; Z79.899 Other long term (current) drug therapy | CPT/HCPCS: 90471; 90677; 99212; 99387 ==

== ENCOUNTER 2025-05-23 09:58 | Outpatient (REF) | payer MEDICARE, SELFPAY ==
--- NOTE | ~2025-05-23 | MM_ITS ---
EXAMINATION: DXA BONE DENSITY AXIAL HISTORY: M85.80 - Other specified disorders of bone density and structure, unspecified... TECHNIQUE: Morgan Everett Dual energy absorptiometry (DEXA) of the lumbar spine, total left hip, and femoral neck was performed. COMPARISON: Comparison is made with the prior examination dated 08/18/2022. FINDINGS: The bone mineral density of the lumbar spine is 1.076 g/cm2, corresponding to a T-score of -0.9, and a Z-score of 1.2. This is indicative of normal bone mineral density. This represents a BMD change of -1.6% compared to the prior exam. This is not statistically significant. The bone mineral density of the left total hip is 0.840 g/cm2, corresponding to a T-score of -1.3, and a Z-score of 0.2. This is indicative of osteopenia. This represents a BMD change of -1.6% compared to the prior exam. This is not statistically significant. The bone mineral density of the left femoral neck is 0.783 g/cm2, corresponding to a T-score of -1.8, and a Z-score of 0.0. This is indicative of osteopenia. This represents a BMD change of -0.8% compared to the prior exam. FRACTURE RISK: The FRAX index suggests a ten year probability of major osteoporotic fracture of 17.0%, and of hip fracture 1.5%. MM/XR DEXA axial skeleton IMPRESSION: Based on bone mineral density, and according to World Health Organization (WHO) criteria, the diagnosis is consistent with osteopenia. Statistically, 68% of repeat scans fall within 1 SD (+/- 0.010 g/cm2 for AP spine L1-L4) and 1 SD (+/- 0.012 g/cm2 for femur total) FRAX is a trademark of the [employer] Met[employer] Disease, a World Health Organization (WHO) Collaborating Center. Electronically signed by: Bernardino Foster MD 05/23/2025 10:42 AM EDT
--- OUTSIDE RECORDS SUMMARY | 2025-05-23 10:53 | XMS_ITS | Patient Health Record ---
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 02/23/2015 Not-Taking Social History Tobacco [...] Risk Notes Problem Pain in right foot (130895701502 107) Pain in right foot (M79.671) Active [...] X ray : Foot, right 3V 02/03/2014 20592-Zabd Destruction, -14 08/07/2013 49758-Nhwu Destruction, -14 11/18/2013 74849-Smxu Destruction, -14 02/03/2014 64199-Ckfy Destruction, -14 05/24/2012 16611-Kskm Destruction, -14 06/11/2012 24617-Dvse Destruction, -14 06/21/2012 92909-Ocep Destruction, -14 07/04/2012 96754-Yufk Destruction, -14 10/22/2012 26919-Agdf Destruction, -14 02/20/2013 87660-Yhpj Destruction, -14 03/07/2012 67984-Dhuq Destruction, -14 06/24/2013 28885- Debride <25 sq cm 03/16/2015 31987- Debride <25 sq cm 04/09/2015- Ganglion Cyst Injection/Aspiratio n 03/07/2012- Ganglion Cyst Injection/Aspiratio n 02/20/2013- Ganglion Cyst Injection/Aspiratio n 11/18/2013 09348, J0702- Neuroma/Injection 06/18/20 14 84511, J0702- Neuroma/Injection 10/20/19 15 13557, J0702- Neuroma/Injection 06/24/20 13 93165-Dqtsfuiao, Toes 06/18/2014 Insurance Providers Payer Name Payer Address Payer Phone Subscriber Number Group Number Insured Name Patient Relationship to Insured Coverage Start Date Coverage End Date [facility] [address] [facility] [place], [place] [address] [id number] Kassandra Saldana Self - patient is [...] left knee 02/06/1989 Hospitalization History Reason Date(Month/Year) [facility], Tore ligament in l eft knee 10/12/2013
--- OUTSIDE RECORDS SUMMARY | 2025-05-23 10:53 | XMS_ITS | Patient Health Record ---
Author Organization [facility] Address [address] [place] [address] Care Team Providers Care Digital X Ray Service Engineer Name Role Phone Bernardo (RETIRED) Ricardo WESLEY Primary Care Provide r Bernardino Lofton Unavailable [phone] Allergies Allergen (clinical drug ingredient) Drug/Non Drug [...] Problem Screening for malignant neoplasm of colon (919755703) Special screening for malignant neoplasms, colon (V76.51) Active confirmed Problem 078718784 Colon cancer screening (Z12.11) Active confirmed Problem Diverticular disease of colon (017139490) Diverticulosis of large intestine without perforation or abscess without bleeding (K57.30) Active confirmed Problem 269160179606861 Preprocedural examination (Z01.818) Active confirmed Plan Of Treatment Pending Test Test Name Order Date Pathology 11/18/2022 Future Test Test Name Order Date COLONOSCOPY 01/18/2012 COLONOSCOPY 09/28/2022 Medical (General) History Medical History History ICD Code Fibromyalgia Arthritis Denies [place],DM,CVA,Lung disease,renal dise ase Seasonal allergies Hyperlipidemia Negative [...]
== END 2025-05-23 09:59 | disposition home or self-care (01) ==
LOC: HO.MAMMO 09:58
PROVIDERS: PCP Internal Medicine; Visit Provider Physician Assistant
DX: Z13.820 Encounter for screening for osteoporosis (principal); M85.89 Other specified disorders of bone density and structure, multiple sites
CPT/HCPCS: 77080

== ENCOUNTER → 2025-05-23 10:30 | Outpatient (BNV) | payer MEDICARE, SELFPAY | PROVIDERS: PCP Internal Medicine; Visit Provider Radiology Diagnostic Radiology | DX: E28.39 Other primary ovarian failure (principal) | CPT/HCPCS: 77080 ==

== ENCOUNTER 2025-08-29 09:18 | Outpatient (REF) | payer MEDICARE, SELFPAY ==
--- NOTE | ~2025-08-29 | MM_ITS ---
EXAMINATION: MM SCREENING DIGITAL BREAST TOMOSYNTHESIS, BILATERAL CLINICAL INFORMATION: Screening. Asymptomatic. COMPARISON: Mammography: Comparison is made with available priors TECHNIQUE: Digital breast mammography with tomosynthesis is performed in both the craniocaudal and mediolateral oblique views along with computer-aided detection (CAD). FINDINGS: The breasts are heterogeneously dense, which may obscure small masses. There are no significant masses, abnormal calcifications, or other abnormalities. MM/MM tomosynthesis screening BI IMPRESSION: No mammographic evidence of malignancy. ASSESSMENT: BI-RADS Category 1: Negative RECOMMENDATION: Routine annual mammography screening. 1 year F/U This examination should not preclude the clinical evaluation of a suspicious palpable abnormality. This patient's information was entered into a reminder system with a target due date for their next mammogram. Electronically signed by: Milena Demarco DO 09/02/2025 02:09 PM PIPER
== END 2025-08-29 09:19 | disposition home or self-care (01) ==
LOC: HO.MAMMO 09:18
PROVIDERS: PCP Physician Assistant; Visit Provider Internal Medicine
DX: Z12.31 Encounter for screening mammogram for malignant neoplasm of breast (principal)
CPT/HCPCS: 77063; 77067

== ENCOUNTER → 2025-08-29 09:45 | Outpatient (BNV) | payer MEDICARE, SELFPAY | PROVIDERS: PCP Physician Assistant; Visit Provider Internal Medicine | DX: Z12.31 Encounter for screening mammogram for malignant neoplasm of breast (principal) | CPT/HCPCS: 77063; 77067 ==